=== PATIENT | female | born 1995 | race African-American/Black ===

== ENCOUNTER 2016-11-17 11:42 | Emergency (ER) | payer MEDICAID ==
[~2016-11-17] VITALS: Ht 154.9 cm; Wt 58.1 kg
[2016-11-17 13:08] VITALS: BP 102/54
[2016-11-17] MEDS ORDERED: LIDOCAINE 2%HCL (LOCAL ANESTH.) INJ 20ML MDV ONE (13:09)
[2016-11-17] MEDS ORDERED: LIDOCAINE 2%HCL (LOCAL ANESTH.) INJ 20ML MDV IJ ONE (13:30)
== END 2016-11-17 13:41 | disposition home or self-care (01) ==
LOC: ER 12:00
DX: L02.416 Cutaneous abscess of left lower limb (principal)
CPT/HCPCS: 10060